=== PATIENT | male | born 1985 | race Two or more races ===

== ENCOUNTER 2020-06-05 02:37 | Emergency (ER) | payer SELFPAY ==
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
== END 2020-06-05 02:55 ==
LOC: FB.ED 02:37
DX: Z04.3 Encounter for examination and observation following other accident (principal); V89.2XXA Person injured in unspecified motor-vehicle accident, traffic, initial encounter
CPT/HCPCS: 99282; 99284